=== PATIENT | male | born 1960 | race Caucasian/White ===

== ENCOUNTER 2020-11-10 16:00 | Emergency (ER) | payer SELFPAY ==
[2020-11-10] MEDS ORDERED: Albuterol/Ipratropium 3.0-0.5 MG/3 ML Neb Soln NEB ONE (16:32)
--- NOTE | 2020-11-10 16:33 | EDM.PDOC ---
ED HPI GENERAL MEDICAL PROBLEM - General Chief Complaint: Respiratory Problem Stated Complaint: LOW OXYGEN SENT BY [facility] Time Seen by Provider: 11/10/20 16:21 Source of Information: Reports: Patient, RN Notes Reviewed History Limitations: Reports: No Limitations - History of Present Illness INITIAL COMMENTS - FREE TEXT/NARRATIVE: Patient is a 59-year-old male sent to the emergency department from his primary care provider, Concepción Uriostegui NP. She reports that he presented to his office today for routine blood work and follow-up. Oxygen saturation in his office was found to be 70% on room air and he seemed to be disoriented. Oxygen was applied and he was sent to the emergency department. Patient reports that he has been having increased shortness of breath for about the past week and a half. He does have a history of COPD and had been on inhalers in the past, however he was unable to afford them so he stopped them. He has been using tea tree oil nebulizer treatments to treat his COPD. He states that his coworkers recommended he come to the clinic because they feel he has been disoriented. He denies any chest pain at any point. He is alert and oriented x4. Reports he does wear 2-1/2 L of oxygen at night only. He does not have a official diagnosis of congestive heart failure but states there has been "suspicion of it " in the past. He has had no cough, fever, chills, nausea, vomiting, or diarrhea. - Related Data Allergies Allergy/AdvReac Type Severity Reaction Status Date / Time Penicillins Allergy Cannot Verified 02/27/16 12:35 Remember Home Meds: Home Meds Diclofenac Sodium [Voltaren] 50 mg PO TIDMEALS #24 tab.ec 02/27/16 [Rx] Levofloxacin [Levaquin] 500 mg PO Q24H #10 tablet 02/27/16 [Rx] Metoprolol Succinate [Toprol XL] 100 mg PO DAILY 02/27/16 [History] Prednisone [IJD: predniSONE] 20 mg PO BID #10 tab 02/27/16 [Rx] Triamterene/Hydrochlorothiazid [Triamterene-HCTZ 37.5-25 MG] 1 each PO DAILY 02/27/16 [History] amLODIPine [Norvasc] 1 cap PO DAILY 02/27/16 [History] oxyCODONE HCl/Acetaminophen [Percocet 5-325 mg Tablet] 1 - 2 each PO Q4H PRN #12 tablet 02/27/16 [Rx] Past Medical History Cardiovascular History: Reports: Hypertension Respiratory History: Reports: Asthma, COPD Neurological History: Reports: Migraines Oncologic (Cancer) History: Reports: Liver Other Oncologic History: Patient unsure of type of tumor, but 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 Social & Family History - Tobacco Use Tobacco Use Status *Q: Former Tobacco User Used Tobacco, but Quit: Yes Month/Year Tobacco Last Used: 2019 - Caffeine Use Caffeine Use: Reports: Coffee - Recreational Drug Use Recreational Drug Use: No - Living Situation & Occupation Living situation: Reports: Occupation: Employed ED ROS GENERAL - Review of Systems Review Of Systems: See Below Constitutional: Reports: No Symptoms. Denies: Fever, Chills HEENT: Reports: No Symptoms Respiratory: Reports: Shortness of Breath. Denies: Wheezing, Pleuritic Chest Pain, Cough Cardiovascular: Reports: Dyspnea on Exertion. Denies: Chest Pain, Lightheadedness, Palpitations Endocrine: Reports: No Symptoms GI/Abdominal: Reports: No Symptoms : Reports: No Symptoms Musculoskeletal: Reports: No Symptoms Skin: Reports: No Symptoms Neurological: Reports: Other ("disoriented") Psychiatric: Reports: No Symptoms Hematologic/Lymphatic: Reports: No Symptoms Immunologic: Reports: No Symptoms ED EXAM, GENERAL - Physical Exam Exam: See Below Exam Limited By: No Limitations General Appearance: Alert, WD/WN, No Apparent Distress Respiratory/Chest: No Respiratory Distress, No Accessory Muscle Use, Chest Non- Tender, Other (Diminished breath sounds with diffuse expiratory wheezes throughout) Cardiovascular: Normal Peripheral Pulses, Regular Rate, Rhythm, No Gallop, No JVD, No Murmur, No Rub, Other (1+ pitting lower extremity edema) GI/Abdominal: Normal Bowel Sounds, Soft, Non-Tender, No Organomegaly, No A bnormal Bruit, No Mass, Distended Extremities: Normal Inspection, Normal Range of Motion, Non-Tender, Normal Capillary Refill Neurological: Alert, Oriented, CN II-XII Intact, Normal Cognition, Normal Gait, Normal Reflexes, No Motor/Sensory Deficits Psychiatric: Normal Affect, Normal Mood Skin Exam: Warm, Dry, Intact, Normal Color, No Rash #1 Interpretation EKG Date: 11/10/20 Time: 16:54 Rhythm: NSR Rate (Beats/Min): 74 [place]: RAD-Right [place] Deviation P-Wave: Present QRS: Normal ST-T: Normal QT: Prolonged (Mildly) EKG Interpretation Comments: Sinus rhythm at 84/min Q waves V1 and V2-old anterior septal [place] Consider left atrial hypertrophy Mild right axis deviation Decreased voltage limb leads QTC minimally prolonged T wave inversion 1 and aVL EKG interpreted by Dr. Tamera MAY Course - Vital Signs Last Recorded V/S: Last Vital Signs Temp 97.6 F 11/10/20 16:16 Pulse 68 11/10/20 18:39 Resp 20 11/10/20 18:39 BP 134/93 H 11/10/20 18:39 Pulse Ox 90 L 11/10/20 18:39 - Orders/Labs/Meds Labs: Laboratory Tests 11/10/20 11/10/20 11/10/20 Range/Units 16:20 16:25 16:25 WBC 11.30 H (4.23-9.07) K/mm3 RBC 4.59 L (4.63-6.08) M/mm3 Hgb 15.7 (13.7-17.5) gm/dl Hct 48.7 (40.1-51.0) % MCV 106.1 H (79.0-92.2) fl MCH 34.2 H (25.7-32.2) pg MCHC 32.2 (32.2-35.5) g/dl RDW Std Deviation 62.4 H (35.1-43.9) fL Plt Count 158 L (163-337) K/mm3 MPV 10.2 (9.4-12.3) fl Neut % (Auto) 75.7 H (34.0-67.9) % Lymph % (Auto) 9.5 L (21.8-53.1) % [place] % (Auto) 13.4 H (5.3-12.2) % Eos % (Auto) 0.4 L (0.8-7.0) Baso % (Auto) 0.2 (0.1-1.2) % Neut # (Auto) 8.56 H (1.78-5.38) K/mm3 Lymph # (Auto) 1.07 L (1.32-3.57) K/mm3 [place] # (Auto) 1.51 H (0.30-0.82) K/mm3 Eos # (Auto) 0.05 (0.04-0.54) K/mm3 Baso # (Auto) 0.02 (0.01-0.08) K/mm3 Manual Slide Review Abnormal smear D-Dimer, Quantitative 1.56 H (0.19-0.50) mg/L Puncture Site ABG pH (7.35-7.45) ABG pCO2 (35.0-45.0) mmHg ABG pO2 (80.0-100.0) mmHg ABG HCO3 (22.0-26.0) meq/L ABG O2 Saturation (96.0-97.0) % ABG Base Excess (-2-2.0) A-a Gradient mmHg O2 Delivery Device Oxygen Flow Rate FiO2 (21.00-100.00) % Sodium (136-145) mEq/L Potassium (3.5-5.1) mEq/L Chloride (98-107) mEq/L Carbon Dioxide (21-32) mEq/L Anion Gap (5-15) BUN (7-18) mg/dL Creatinine (0.7-1.3) mg/dL Est Cr Clr Drug Dosing mL/min Estimated GFR (MDRD) (>60) mL/min BUN/Creatinine Ratio (14-18) Glucose (70-99) mg/dL Calcium (8.5-10.1) mg/dL Total Bilirubin (0.2-1.0) mg/dL AST (15-37) U/L ALT (16-63) U/L Alkaline Phosphatase (46-116) U/L Troponin I (0.00-0.056) ng/mL C-Reactive Protein (<1.0) mg/dL NT-Pro-B Natriuret Pep (0-125) pg/mL Total Protein (6.4-8.2) g/dl Albumin (3.4-5.0) g/dl Globulin gm/dL Albumin/Globulin Ratio (1-2) Urine Color (Yellow) Urine Appearance (Clear) Urine pH (5.0-8.0) Ur Specific [place] (1.005-1.030) Urine Protein (Negative) Urine Glucose (UA) (Negative) Urine Ketones (Negative) Urine Occult Blood (Negative) Urine Nitrite (Negative) Urine Bilirubin (Negative) Urine Urobilinogen (0.2-1.0) Ur Leukocyte Esterase (Negative) Urine RBC (0-5) /hpf Urine WBC (0-5) /hpf Ur Epithelial Cells (0-5) /hpf Urine Bacteria (FEW) /hpf Urine Mucus (FEW) /hpf Influenza Type A RNA Cancelled Influenza Type B RNA Cancelled SARS-CoV-2 RNA (IRIS) Negative (NEGATIVE) 11/10/20 11/10/20 11/10/20 Range/Units 16:25 16:25 16:25 WBC (4.23-9.07) K/mm3 RBC (4.63-6.08) M/mm3 Hgb (13.7-17.5) gm/dl Hct (40.1-51.0) % MCV (79.0-92.2) fl MCH (25.7-32.2) pg MCHC (32.2-35.5) g/dl RDW Std Deviation (35.1-43.9) fL Plt Count (163-337) K/mm3 MPV (9.4-12.3) fl Neut % (Auto) (34.0-67.9) % Lymph % (Auto) (21.8-53.1) % [place] % (Auto) (5.3-12.2) % Eos % (Auto) (0.8-7.0) Baso % (Auto) (0.1-1.2) % Neut # (Auto) (1.78-5.38) K/mm3 Lymph # (Auto) (1.32-3.57) K/mm3 [place] # (Auto) (0.30-0.82) K/mm3 Eos # (Auto) (0.04-0.54) K/mm3 Baso # (Auto) (0.01-0.08) K/mm3 Manual Slide Review D-Dimer, Quantitative (0.19-0.50) mg/L Puncture Site ABG pH (7.35-7.45) ABG pCO2 (35.0-45.0) mmHg ABG pO2 (80.0-100.0) mmHg ABG HCO3 (22.0-26.0) meq/L ABG O2 Saturation (96.0-97.0) % ABG Base Excess (-2-2.0) A-a Gradient mmHg O2 Delivery Device Oxygen Flow Rate FiO2 (21.00-100.00) % Sodium 140 (136-145) mEq/L Potassium 3.9 (3.5-5.1) mEq/L Chloride 101 (98-107) mEq/L Carbon Dioxide 36 H (21-32) mEq/L Anion Gap 6.9 (5-15) BUN 20 H (7-18) mg/dL Creatinine 1.1 (0.7-1.3) mg/dL Est Cr Clr Drug Dosing 78.91 mL/min Estimated GFR (MDRD) > 60 (>60) mL/min BUN/Creatinine Ratio 18.2 H (14-18) Glucose 103 H (70-99) mg/dL Calcium 8.2 L (8.5-10.1) mg/dL Total Bilirubin 1.5 H (0.2-1.0) mg/dL AST 79 H (15-37) U/L ALT 209 H (16-63) U/L Alkaline Phosphatase 66 (46-116) U/L Troponin I 0.122 H* (0.00-0.056) ng/mL C-Reactive Protein 5.6 H* (<1.0) mg/dL NT-Pro-B Natriuret Pep 1715 H (0-125) pg/mL Total Protein 7.3 (6.4-8.2) g/dl Albumin 3.3 L (3.4-5.0) g/dl Globulin 4.0 gm/dL Albumin/Globulin Ratio 0.8 L (1-2) Urine Color (Yellow) Urine Appearance (Clear) Urine pH (5.0-8.0) Ur Specific [place] (1.005-1.030) Urine Protein (Negative) Urine Glucose (UA) (Negative) Urine Ketones (Negative) Urine Occult Blood (Negative) Urine Nitrite (Negative) Urine Bilirubin (Negative) Urine Urobilinogen (0.2-1.0) Ur Leukocyte Esterase (Negative) Urine RBC (0-5) /hpf Urine WBC (0-5) /hpf Ur Epithelial Cells (0-5) /hpf Urine Bacteria (FEW) /hpf Urine Mucus (FEW) /hpf Influenza Type A RNA Influenza Type B RNA SARS-CoV-2 RNA (IRIS) (NEGATIVE) 11/10/20 11/10/20 11/10/20 Range/Units 17:04 17:34 19:30 WBC (4.23-9.07) K/mm3 RBC (4.63-6.08) M/mm3 Hgb (13.7-17.5) gm/dl Hct (40.1-51.0) % MCV (79.0-92.2) fl MCH (25.7-32.2) pg MCHC (32.2-35.5) g/dl RDW Std Deviation (35.1-43.9) fL Plt Count (163-337) K/mm3 MPV (9.4-12.3) fl Neut % (Auto) (34.0-67.9) % Lymph % (Auto) (21.8-53.1) % [place] % (Auto) (5.3-12.2) % Eos % (Auto) (0.8-7.0) Baso % (Auto) (0.1-1.2) % Neut # (Auto) (1.78-5.38) K/mm3 Lymph # (Auto) (1.32-3.57) K/mm3 [place] # (Auto) (0.30-0.82) K/mm3 Eos # (Auto) (0.04-0.54) K/mm3 Baso # (Auto) (0.01-0.08) K/mm3 Manual Slide Review D-Dimer, Quantitative (0.19-0.50) mg/L Puncture Site Rt radial ABG pH 7.34 L (7.35-7.45) ABG pCO2 65.2 H (35.0-45.0) mmHg ABG pO2 70.0 L (80.0-100.0) mmHg ABG HCO3 34.1 H (22.0-26.0) meq/L ABG O2 Saturation 91.6 L (96.0-97.0) % ABG Base Excess 6.2 H (-2-2.0) A-a Gradient 106 mmHg O2 Delivery Device Nasal cannula Oxygen Flow Rate 4.0 FiO2 36.00 (21.00-100.00) % Sodium (136-145) mEq/L Potassium (3.5-5.1) mEq/L Chloride (98-107) mEq/L Carbon Dioxide (21-32) mEq/L Anion Gap (5-15) BUN (7-18) mg/dL Creatinine (0.7-1.3) mg/dL Est Cr Clr Drug Dosing mL/min Estimated GFR (MDRD) (>60) mL/min BUN/Creatinine Ratio (14-18) Glucose (70-99) mg/dL Calcium (8.5-10.1) mg/dL Total Bilirubin (0.2-1.0) mg/dL AST (15-37) U/L ALT (16-63) U/L Alkaline Phosphatase (46-116) U/L Troponin I 0.124 H* (0.00-0.056) ng/mL C-Reactive Protein (<1.0) mg/dL NT-Pro-B Natriuret Pep (0-125) pg/mL Total Protein (6.4-8.2) g/dl Albumin (3.4-5.0) g/dl Globulin gm/dL Albumin/Globulin Ratio (1-2) Urine Color Yellow (Yellow) Urine Appearance Clear (Clear) Urine pH 6.5 (5.0-8.0) Ur Specific [place] 1.015 (1.005-1.030) Urine Protein 2+ H (Negative) Urine Glucose (UA) Negative (Negative) Urine Ketones Negative (Negative) Urine Occult Blood Negative (Negative) Urine Nitrite Negative (Negative) Urine Bilirubin Negative (Negative) Urine Urobilinogen >=8.0 H (0.2-1.0) Ur Leukocyte Esterase Negative (Negative) Urine RBC 0-5 (0-5) /hpf Urine WBC 0-5 (0-5) /hpf Ur Epithelial Cells Not seen (0-5) /hpf Urine Bacteria Rare (FEW) /hpf Urine Mucus Not seen (FEW) /hpf Influenza Type A RNA Influenza Type B RNA SARS-CoV-2 RNA (IRIS) (NEGATIVE) Meds: Medications Discontinued Medications Generic Name Dose Route Start Last Admin Trade Name Freq PRN Reason Stop Dose Admin Albuterol/Ipratropium 3 ml 11/10/20 16:32 11/10/20 16:49 Albuterol/Ipratropium 3.0-0.5 Mg/3 Ml Neb Soln NEB 11/10/20 16:33 3 ml ONETIME ONE Administration Furosemide 40 mg 11/10/20 18:25 11/10/20 18:36 Furosemide 40 Mg/4 Ml Vial IVPUSH 11/10/20 18:26 40 mg NOW ONE Administration Sodium Chloride 100 mls @ 60 mls/min 11/10/20 18:00 11/10/20 18:00 Normal Saline IV 60 mls/min ASDIRECTED AMOR Administration Iopamidol 100 ml 11/10/20 17:59 11/10/20 18:00 Iopamidol 755 Mg/Ml 100 Ml Bottle IVPUSH 11/10/20 18:00 100 ml ONETIME ONE Administration Sodium Chloride 10 ml 11/10/20 17:59 11/10/20 18:01 Sodium Chloride 0.9% 10 Ml Sdv FLUSH 11/10/20 18:00 10 ml ONETIME ONE Administration - Re-Assessments/Exams Free Text/Narrative Re-Assessment/Exam: Patient is a 59-year-old male presenting to the emergency department for hypoxia. Reports he has been feeling increasingly short of breath for the last week and a half. He has a diagnosis of COPD but has been off of his inhalers. He has been using tea tree oil nebulizer treatments. On exam, patient has dim inished breath sounds with diffuse expiratory wheezing throughout. His sats are in the low 90's on 4 L of oxygen by nasal cannula. he has had no chest pain. He is alert and oriented and answering questions appropriately. I have ordered cardiac work-up including blood work, EKG, chest x-ray, ABGs. We will give him a DuoNeb breathing treatment. 11/10/20 1630 Otology significant for WBC minimally elevated 11.3, D-dimer elevated 1.56, CO2 36, BUN 20, total bili 1.5, AST 79, ALT 209, troponin 0 0.122, CRP 5.6, proBNP 1715. Covid is negative. These reveal an essentially normal pH, PCO2 elevated at 65.2, PO2 low at 70, bicarb elevated at 34.1, O2 saturation 91.6. This was done on 4 L of oxygen by nasal cannula. She is in a fully compensated respiratory acidosis. Chest x-ray shows findings of mild congestive heart failure. Confirmed patient has had no chest pain at any point. Elevation in troponin may likely be due to congestive heart failure. CT angiogram of the chest to rule out PE. Will repeat troponin at 1930. Will order Lasix 40 mg IV to be given now. 11/10/20 20:10 I have notified by nursing staff that patient is leaving the facility. I did discuss with him the risks including respiratory failure and cardiac arrest given his elevated troponins and hypoxia. discussed that he could very well from this. He states "I concur" and would like to go home. He will sign out AGAINST MEDICAL ADVICE. Amy RN also emphasized the severity of his illness and he verbalized understanding. AMA paperwork has been completed. Departure - Departure Time of Disposition: 20:10 Disposition: Against Medical Advice 07 Condition: Fair Clinical Impression: Left against medical advice - Discharge Information Referrals: Concepción Uriostegui NP [Primary Care Provider] - Forms: ED Department Discharge Sepsis Event Note (ED) - Evaluation Sepsis Screening Result: No Definite Risk
--- NOTE | 2020-11-10 17:03 | CR ---
Chest: Portable view of the chest was obtained. Comparison: Prior chest x-ray of 02/27/16. Heart is enlarged. Pulmonary vessels are slightly congested. Lungs otherwise are grossly clear. Bony structures show nothing definitely acute. Impression: 1. Findings suspicious for mild CHF. Diagnostic code #3
[2020-11-10] MEDS ORDERED: Sodium Chloride 0.9% 10 ML SDV FLUSH ONE (17:59)
[2020-11-10] MEDS ORDERED: Iopamidol 755 Mg/ML 100 ML Bottle IVPUSH ONE (17:59)
[2020-11-10] MEDS ORDERED: Sodium Chloride 0.9% 100 ML IV SCH (18:00)
[2020-11-10] MEDS ORDERED: Furosemide 40 MG/4 ML VIAL IVPUSH ONE (18:25)
--- NOTE | 2020-11-10 18:29 | CT ---
CT chest Technique: Multiple axial sections through the chest were obtained. Intravenous contrast was utilized. Study has been performed as a pulmonary angiogram protocol. Comparison: Prior chest x-ray performed earlier on the same day (4:35 PM). Findings: Pulmonary arteries are well opacified. No filling defects are seen to indicate pulmonary embolism. Thoracic aorta shows no aneurysm. Mediastinum shows small lymph nodes with no findings of adenopathy being seen. Axillary regions show no adenopathy. No pericardial thickening is seen. Heart is mildly enlarged. Low density lesion is seen within the inferior right lobe of the liver which was felt compatible with a cyst measuring 2.5 cm. Lung window settings were reviewed which show slight parenchymal densities within both lung bases most likely representing slight scarring or minimal atelectasis. No acute parenchymal change is otherwise seen within either portions of the chest. Bone window settings were reviewed which show no acute osseous abnormality. Impression: 1. No findings of pulmonary embolism. 2. Slight parenchymal densities within both lung bases most likely due to scarring or atelectasis. 3. Cyst within the right lobe of the liver. Diagnostic code #2
[2020-11-10 18:43] VITALS: BP 134/93; PULSE 68
== END 2020-11-10 20:02 | disposition left against medical advice (07) ==
LOC: JD.ED 16:00
DX: R09.02 Hypoxemia (principal); Z53.8 Procedure and treatment not carried out for other reasons; J44.9 Chronic obstructive pulmonary disease, unspecified; I10 Essential (primary) hypertension; Z88.0 Allergy status to penicillin; Z79.899 Other long term (current) drug therapy; Z87.891 Personal history of nicotine dependence; Z20.822 Contact with and (suspected) exposure to COVID-19
CPT/HCPCS: 36415; 36600; 71045; 71275; 80053; 81001; 82803; 83880; 84484; 85025; 85379; 86140; 87635; 87804; 93005; 94640; 96374; 99285; J1940; Q9967; 93010; 99284; J7620-GY; U0002